=== PATIENT | female | born 1965 | race Caucasian/White ===

== ENCOUNTER → 2020-04-02 | Outpatient (CLI) | payer OTHER | END | disposition home or self-care (01) | LOC: MAMO-SONO 12:12 | PROVIDERS: ATTEND Obstetrics & Gynecology Maternal & Fetal Medicine | DX: Z12.31 Encounter for screening mammogram for malignant neoplasm of breast (principal); N64.4 Mastodynia; N60.11 Diffuse cystic mastopathy of right breast ==

== ENCOUNTER 2024-11-08 05:17 | Day surgery (SDC) | payer OTHER ==
[2024-11-02 12:43] VITALS: BP 130/81
[~2024-11-08] VITALS: Ht 152.4 cm; Wt 59.0 kg
[2024-11-08] MEDS ORDERED: CEFAZOLIN SODIUM 1,000 MG VIAL ONE (07:15)
[2024-11-08] MEDS ORDERED: BUPIVACAINE HCL/MPF 0.5% 30ML VIAL ONE (07:15)
== END 2024-11-08 11:05 | disposition home or self-care (01) ==
LOC: CIR.AMB 05:17
PROVIDERS: ATTEND Orthopaedic Surgery Hand Surgery
DX: G56.02 Carpal tunnel syndrome, left upper limb (principal)